=== PATIENT | female | born 1985 | race Hispanic/Latino ===

== ENCOUNTER 2017-01-14 19:15 | Emergency (ER) | payer SELFPAY ==
[2017-01-14] MEDS ORDERED: AUGMENTIN 875 MG PO ONE (22:01)
[2017-01-14] MEDS ORDERED: MOTRIN PO ONE (22:02)
--- NOTE | 2017-01-14 22:05 | Emergency Department Report ---
- General Chief Complaint: Upper Respiratory Infection Stated Complaint: BILATERAL EAR PAIN, CHEST PAIN Source: patient Mode of arrival: Ambulatory Limitations: No Limitations - History of Present Illness Initial Comments: 31-year-old female past medical history HIV currently on stribild, last CD4 over 500 less than 2 months ago p/w c/o 2 days of nasal congestion and bilateral earache. Patient denies any significant fever or chills, states that she is primarily experiencing earache very mild sore throat nasal and upper airway congestion. States she has a mild cough, slightly productive with scant whitish sputum. Patient is awake alert and oriented 3 does not appear to be in acute distress no audible wheezing or stridor on exam. Patient denies any nausea or vomiting denies any chest pain shortness of breath or palpitations. States that after coughing fits she feels slightly short of breath but it goes away after a few seconds. Patient denies any recent travel. States that her son was diagnosed with an ear infection this week. MD Complaint: cough, other (earache) Onset/Timin -: days(s) Severity: mild Severity scale (0 -10): 3 Quality: dull Consistency: constant Improves With: nothing Worsens With: nothing Context: sick contacts Associated Symptoms: nasal congestion, hoarseness - Related Data Previous Rx's Medication Instructions Recorded Last Taken Type Sertraline [Zoloft] 100 mg PO DAILY #30 tablet 02/06/15 Unknown Rx Stribild Tablet 1 tab PO DAILY #30 02/06/15 Unknown Rx Acetaminophen/Codeine 1 tab PO Q6H PRN #15 tab 01/20/16 Unknown Rx [Acetaminophen-Codeine #3 TAB] Sulfamethoxazole/Trimethoprim 1 each PO BID #6 tablet 01/29/16 Unknown Rx [Bactrim DS TAB] Amoxicillin/K Clav Tab [Augmentin 1 tab PO Q12HR #14 tab 01/14/17 Unknown Rx 875 mg] Ibuprofen [Motrin] 600 mg PO Q8H PRN #25 tablet 01/14/17 Unknown Rx Allergies Allergy/AdvReac Type Severity Reaction Status Date / Time No Known Allergies Allergy Verified 01/20/16 15:03 ED Review of Systems ROS: Stated complaint: BILATERAL EAR PAIN, CHEST PAIN Other details as noted in HPI Constitutional: denies: chills, fever Eyes: denies: eye pain, eye discharge, vision change ENT: ear pain. denies: throat pain Respiratory: denies: cough, shortness of breath, wheezing Cardiovascular: denies: chest pain, palpitations Endocrine: no symptoms reported Gastrointestinal: denies: abdominal pain, nausea, diarrhea Genitourinary: denies: urgency, dysuria, discharge Musculoskeletal: denies: back pain, joint swelling, arthralgia Skin: denies: rash, lesions Neurological: denies: headache, weakness, paresthesias Psychiatric: denies: anxiety, depression Hematological/Lymphatic: denies: easy bleeding, easy bruising ED Past Medical Hx - Past Medical History Previous Medical History?: Yes Hx Psychiatric Treatment: Yes (post depression) Hx HIV: Yes Additional medical history: GLAUCOMA - Surgical History Past Surgical History?: Yes Additional Surgical History: X 3 - Social History Smoking Status: Never Smoker Substance Use Type: None - Medications Home Medications: Home Medications Medication Instructions Recorded Confirmed Last Taken Type Sertraline [Zoloft] 100 mg PO DAILY #30 tablet 02/06/15 Unknown Rx Stribild Tablet 1 tab PO DAILY #30 02/06/15 Unknown Rx Acetaminophen/Codeine 1 tab PO Q6H PRN #15 tab 01/20/16 Unknown Rx [Acetaminophen-Codeine #3 TAB] Sulfamethoxazole/Trimethoprim 1 each PO BID #6 tablet 01/29/16 Unknown Rx [Bactrim DS TAB] Amoxicillin/K Clav Tab [Augmentin 1 tab PO Q12HR #14 tab 01/14/17 Unknown Rx 875 mg] Ibuprofen [Motrin] 600 mg PO Q8H PRN #25 tablet 01/14/17 Unknown Rx ED Physical Exam - General Limitations: No Limitations General appearance: alert, in no apparent distress - Head Head exam: Present: atraumatic, normocephalic - Eye Eye exam: Present: normal appearance, PERRL, EOMI - ENT ENT exam: Present: mucous membranes moist - Expanded ENT Exam Expanded TM/Canal exam: Erythema: Left TM, Bulging: Left TM (mild bulging of TM with slight erythema left side. There is no mastoid tenderness bilaterally on exam patient mastoid regions.) Mouth exam: Present: normal external inspection Teeth exam: Present: normal inspection Throat exam: Positive: normal inspection - Neck Neck exam: Present: normal inspection, full ROM - Respiratory Respiratory exam: Present: normal lung sounds bilaterally. Absent: respiratory distress - Cardiovascular Cardiovascular Exam: Present: regular rate, normal rhythm. Absent: systolic murmur, diastolic murmur, rubs, gallop - GI/Abdominal GI/Abdominal exam: Present: soft, normal bowel sounds - Extremities Exam Extremities exam: Present: normal inspection - Back Exam Back exam: Present: normal inspection - Neurological Exam Neurological exam: Present: alert, oriented X3, CN II-XII intact, normal gait - Psychiatric Psychiatric exam: Present: normal affect, normal mood - Skin Skin exam: Present: warm, dry, intact, normal color. Absent: rash ED Course Vital Signs 01/14/17 20:00 Temperature 98.3 F Pulse Rate 81 Respiratory 20 Rate Blood Pressure 113/68 [Right] O2 Sat by Pulse 100 Oximetry ED Medical Decision Making - Medical Decision Making A/P: Acute otitis media 1-patient has HIV but as per her last CD4 is well controlled with undetectable viral load and CD4 count over 500 as per patient states it was checked less than 2 months ago 2-Augmentin 875 twice a day for 7 days 3-Motrin when necessary for earache 4-advised patient to return to the ED if symptoms worsen she has any discharge from her ears experiences any significant decrease in hearing has persistent fever or chills without any associated neck rigidity photo or phonophobia 5-patient has no complaints of chest pain or palpitations, EKG done in triage was normal has no other cardiac risk factors 6- case discussed with Dr. Latham before discharge Critical care attestation.: If time is entered above; I have spent that time in minutes in the direct care of this critically ill patient, excluding procedure time. ED Disposition Clinical Impression: Acute otitis media Qualifiers: Otitis media type: suppurative Laterality: bilateral Recurrence: not specified as recurrent Spontaneous tympanic membrane rupture: without spontaneous rupture Qualified Code(s): H66.003 - Acute suppurative otitis media without spontaneous rupture of ear drum, bilateral Disposition: DISCHARGED TO HOME OR SELFCARE Is pt being admited?: No Does the pt Need Aspirin: No Condition: Stable Instructions: Otitis Media (ED) Prescriptions: Amoxicillin/K Clav Tab [Augmentin 875 mg] 1 tab PO Q12HR #14 tab Ibuprofen [Motrin] 600 mg PO Q8H PRN #25 tablet PRN Reason: Pain Referrals: [facility] [Outside] - 3-5 Days DEBI LAWS MD [Staff Physician] - 3-5 Days Forms: Work/School Release Form(ED) Time of Disposition: 22:09
[2017-01-14 22:25] VITALS: BP 115/72
== END 2017-01-14 22:26 | disposition home or self-care (01) ==
LOC: ED 19:15
DX: H66.003 Acute suppurative otitis media without spontaneous rupture of ear drum, bilateral (principal)
CPT/HCPCS: 93005; 93010; 99282

== ENCOUNTER 2017-02-22 00:01 | Emergency (ER) | payer OTHER ==
[2017-02-22 00:23] VITALS: BP 118/87
[2017-02-22] MEDS ORDERED: THERMAZENE 50 GRAM TP ONE (00:55)
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
[2017-02-22] MEDS ORDERED: NORCO 5/325 PO ONE (01:19)
== END 2017-02-22 02:26 | disposition home or self-care (01) ==
LOC: ED 00:01
DX: T21.22XA Burn of second degree of abdominal wall, initial encounter (principal); X12.XXXA Contact with other hot fluids, initial encounter; Y93.89 Activity, other specified; Y99.9 Unspecified external cause status; Y92.89 Other specified places as the place of occurrence of the external cause

== ENCOUNTER 2018-02-27 01:02 | Emergency (ER) | payer MEDICARE ==
[2018-02-27 01:35] VITALS: BP 134/77
--- NOTE | 2018-02-27 03:24 | Emergency Department Report ---
ED ENT HPI - General Chief complaint: Earache Stated complaint: EAR PAIN Time Seen by Provider: 02/27/18 03:03 Source: patient Mode of arrival: Ambulatory Limitations: No Limitations - History of Present Illness Initial comments: This is a 32-year-old female nontoxic, well nourished in appearance, no acute signs of distress presents to the ED with c/o of right earache times one day. Patient describes pain as aching. Patient denies any decreased hearing or ear canal discharge. Patient denies any mastoid or tragus tenderness. Patient denies any fever, chills, nausea, vomiting, chest pain, shortness of breath, headache or stiff neck. Patient denies any drug allergies. Past medical history includes HIV. MD complaint: ear pain -: days(s) (1) Location: R ear Severity: mild Severity scale (0 -10): 8 Quality: aching Consistency: constant Improves with: none Worsens with: none Associated Symptoms: denies: fever, cough, gum swelling, toothache, pain with swallowing, sore throat, tinnitus, hearing loss, discharge from ear, rhinorrhea - Related Data Previous Rx's Medication Instructions Recorded Last Taken Type Stribild Tablet 1 tab PO DAILY #30 02/06/15 1 Day Ago Rx ~02/21/17 Acetaminophen/Codeine [Tylenol 1 tab PO Q6H PRN #20 tab 02/22/17 Unknown Rx /Codeine # 3 tab] Silver Sulfadiazine [Thermazene] 50 gm TP BID #1 cream..g. 02/22/17 Unknown Rx Amoxicillin [Amoxicillin TAB] 875 mg PO BID #20 tablet 02/27/18 Unknown Rx Ciprofloxacin 0.2%(Nf) 4 drops AD TID #1 droperette 02/27/18 Unknown Rx [Ciprofloxacin Otic 0.2%(Nf)] Allergies Allergy/AdvReac Type Severity Reaction Status Date / Time No Known Allergies Allergy Verified 01/20/16 15:03 ED Dental HPI - General Chief complaint: Earache Stated complaint: EAR PAIN Time Seen by Provider: 02/27/18 03:03 Source: patient Mode of arrival: Ambulatory Limitations: No Limitations - Related Data Previous Rx's Medication Instructions Recorded Last Taken Type Stribild Tablet 1 tab PO DAILY #30 02/06/15 1 Day Ago Rx ~02/21/17 Acetaminophen/Codeine [Tylenol 1 tab PO Q6H PRN #20 tab 02/22/17 Unknown Rx /Codeine # 3 tab] Silver Sulfadiazine [Thermazene] 50 gm TP BID #1 cream..g. 02/22/17 Unknown Rx Amoxicillin [Amoxicillin TAB] 875 mg PO BID #20 tablet 02/27/18 Unknown Rx Ciprofloxacin 0.2%(Nf) 4 drops AD TID #1 droperette 02/27/18 Unknown Rx [Ciprofloxacin Otic 0.2%(Nf)] Allergies Allergy/AdvReac Type Severity Reaction Status Date / Time No Known Allergies Allergy Verified 01/20/16 15:03 ED Review of Systems ROS: Stated complaint: EAR PAIN Other details as noted in HPI Constitutional: denies: chills, fever Eyes: denies: eye pain, eye discharge, vision change ENT: ear pain. denies: throat pain Respiratory: denies: cough, shortness of breath, wheezing Cardiovascular: denies: chest pain, palpitations Endocrine: no symptoms reported Gastrointestinal: denies: abdominal pain, nausea, diarrhea Genitourinary: denies: urgency, dysuria, discharge Musculoskeletal: denies: back pain, joint swelling, arthralgia Skin: denies: rash, lesions Neurological: denies: headache, weakness, paresthesias Psychiatric: denies: anxiety, depression Hematological/Lymphatic: denies: easy bleeding, easy bruising ED Past Medical Hx - Past Medical History Previous Medical History?: Yes Hx Psychiatric Treatment: Yes (post depression) Hx HIV: Yes Additional medical history: GLAUCOMA - Surgical History Past Surgical History?: Yes Additional Surgical History: X 3 - Social History Smoking Status: Never Smoker Substance Use Type: None - Medications Home Medications: Home Medications Medication Instructions Recorded Confirmed Last Taken Type Stribild Tablet 1 tab PO DAILY #30 02/06/15 02/22/17 1 Day Ago Rx ~02/21/17 Acetaminophen/Codeine [Tylenol 1 tab PO Q6H PRN #20 tab 02/22/17 Unknown Rx /Codeine # 3 tab] Silver Sulfadiazine [Thermazene] 50 gm TP BID #1 cream..g. 02/22/17 Unknown Rx Amoxicillin [Amoxicillin TAB] 875 mg PO BID #20 tablet 02/27/18 Unknown Rx Ciprofloxacin 0.2%(Nf) 4 drops AD TID #1 droperette 02/27/18 Unknown Rx [Ciprofloxacin Otic 0.2%(Nf)] ED Physical Exam - General Limitations: No Limitations General appearance: alert, in no apparent distress - Head Head exam: Present: atraumatic, normocephalic - Eye Eye exam: Present: normal appearance Pupils: Present: normal accommodation - ENT ENT exam: Present: normal orophraynx, mucous membranes moist, normal external ear exam - Expanded ENT Exam Expanded TM/Canal exam: Erythema: Right TM, Bulging: Right TM Mouth exam: Present: normal external inspection, tongue normal. Absent: drooling, trismus, muffled voice, tongue elevation, laceration Teeth exam: Present: normal inspection Throat exam: Positive: normal inspection, other (Uvula midline.). Negative: tonsillar erythema, tonsillomegaly, tonsillar exudate, R peritonsillar mass, L peritonsillar mass - Neck Neck exam: Present: normal inspection, full ROM. Absent: tenderness, meningismus, lymphadenopathy - Respiratory Respiratory exam: Present: normal lung sounds bilaterally. Absent: respiratory distress, wheezes, rales, rhonchi, stridor - Cardiovascular Cardiovascular Exam: Present: regular rate, normal rhythm, normal heart sounds. Absent: bradycardia, tachycardia, irregular rhythm, systolic murmur, diastolic murmur, rubs, gallop - GI/Abdominal GI/Abdominal exam: Present: soft, normal bowel sounds - Rectal Rectal exam: Present: deferred - Extremities Exam Extremities exam: Present: normal inspection, full ROM, normal capillary refill - Back Exam Back exam: Present: normal inspection, full ROM - Neurological Exam Neurological exam: Present: alert, oriented X3, normal gait - Psychiatric Psychiatric exam: Present: normal affect, normal mood - Skin Skin exam: Present: warm, dry, intact, normal color. Absent: rash ED Course Vital Signs 02/27/18 01:04 Temperature 98.4 F Pulse Rate 71 Respiratory 16 Rate Blood Pressure 134/77 O2 Sat by Pulse 95 Oximetry - Reevaluation(s) Reevaluation #1: 02/27/18 03:23 Follow-up with a primary care doctor in 3-5 days or if symptoms worsen and continue return to emergency room as soon as possible. Critical care attestation.: If time is entered above; I have spent that time in minutes in the direct care of this critically ill patient, excluding procedure time. ED Disposition Clinical Impression: Otitis media Qualifiers: Otitis media type: unspecified Laterality: right Qualified Code(s): H66.91 - Otitis media, unspecified, right ear Disposition: TO HOME OR SELFCARE Is pt being admited?: No Does the pt Need Aspirin: No Condition: Stable Instructions: Otitis Media (ED) Additional Instructions: Follow-up with a primary care doctor in 3-5 days or if symptoms worsen and continue return to emergency room as soon as possible. Prescriptions: Amoxicillin [Amoxicillin TAB] 875 mg PO BID #20 tablet Ciprofloxacin 0.2%(Nf) [Ciprofloxacin Otic 0.2%(Nf)] 4 drops AD TID #1 droperette Referrals: DYLLAN MURPHY MD [Primary Care Provider] - 3-5 Days PRIMARY CARE, [Referring] - 3-5 Days [facility] [Outside] - 3-5 Days [facility] [Outside] - 3-5 Days Forms: Work/School Release Form(ED)
== END 2018-02-27 03:32 | disposition home or self-care (01) ==
LOC: ED 01:02
DX: H66.91 Otitis media, unspecified, right ear (principal)
CPT/HCPCS: 99282

== ENCOUNTER 2018-04-08 20:20 | Emergency (ER) | payer MEDICARE ==
[2018-04-08 21:20] VITALS: BP 121/67
[2018-04-08 21:36] LABS: Basophils % (Auto) 0.6 % (0.0-1.8); Eosinophils # (Auto) 0.1 K/mm3 (0.0-0.4); Eosinophils % (Auto) 1.9 % (0.0-4.3); Hematocrit 38.6 % (30.3-42.9); Hemoglobin 12.7 gm/dl (10.1-14.3); Lymphocytes # (Auto) 1.8 K/mm3 (1.2-5.4); Lymphocytes % (Auto) 38.8 % (13.4-35.0); Mean Corpuscular HGB Conc 33 % (30-34); Mean Corpuscular Hemoglobin 28 pg (28-32); Mean Corpuscular Volume 85 fl (79-97); Monocytes # (Auto) 0.5 K/mm3 (0.0-0.8); Monocytes % (Auto) 10.5 % (0.0-7.3); Platelet Count 166 K/mm3 (140-440); Red Blood Count 4.56 M/mm3 (3.65-5.03)
[2018-04-08 21:44] LABS: BUN/Creatinine Ratio 22; Blood Urea Nitrogen 13 mg/dL (7-17); Calcium 8.6 mg/dL (8.4-10.2); Hemolysis Index 1
[2018-04-08 22:14] LABS: Bilirubin,Urine NEG (Negative); Blood,Urine SM (Negative); Color,Urine Yellow (Yellow); Mucus,Urine FEW /HPF; Protein,Urine <15 mg/dL mg/dL (Negative)
--- NOTE | 2018-04-08 23:17 | Emergency Department Report ---
ED Upper Extremity Inj HPI - General Chief Complaint: Extremity Problem,Nontraumatic Stated Complaint: BACK AND FEET PAIN Time Seen by Provider: 04/08/18 22:24 Source: patient Mode of arrival: Ambulatory Limitations: No Limitations - History of Present Illness Initial Comments: 32-year-old female comes in complaining of lower back pain, numbness to both feet since yesterday. Patient says it feels like there are needles sticking in her feet. She reports that she felt numb and it made it worse. She reports that on her feet all day. She denies any swelling denies any injury denies any trauma. Patient is followed by [facility]. Patient has not taken any pain medicine for this issue or has been seen by her primary care provider for this. -: days(s) (2) Treatments Prior to Arrival: other (none) - Related Data Previous Rx's Medication Instructions Recorded Last Taken Type Stribild Tablet 1 tab PO DAILY #30 02/06/15 1 Day Ago Rx ~02/21/17 Acetaminophen/Codeine [Tylenol 1 tab PO Q6H PRN #20 tab 02/22/17 Unknown Rx /Codeine # 3 tab] Silver Sulfadiazine [Thermazene] 50 gm TP BID #1 cream..g. 02/22/17 Unknown Rx Amoxicillin [Amoxicillin TAB] 875 mg PO BID #20 tablet 02/27/18 Unknown Rx Ciprofloxacin 0.2%(Nf) 4 drops AD TID #1 droperette 02/27/18 Unknown Rx [Ciprofloxacin Otic 0.2%(Nf)] Ibuprofen [Motrin 600 MG tab] 600 mg PO Q8H PRN #30 tablet 04/09/18 Unknown Rx Allergies Allergy/AdvReac Type Severity Reaction Status Date / Time No Known Allergies Allergy Verified 01/20/16 15:03 ED Review of Systems ROS: Stated complaint: BACK AND FEET PAIN Other details as noted in HPI Constitutional: denies: chills, fever Eyes: denies: eye pain, eye discharge, vision change ENT: denies: ear pain, throat pain Respiratory: no symptoms reported Cardiovascular: denies: chest pain, palpitations Musculoskeletal: back pain, arthralgia, other (bilateral feet pain) Neurological: numbness (bilateral feet numbness) Psychiatric: denies: anxiety, depression Hematological/Lymphatic: denies: easy bleeding, easy bruising ED Past Medical Hx - Past Medical History Previous Medical History?: Yes Hx Psychiatric Treatment: Yes (post depression) Hx HIV: Yes Additional medical history: GLAUCOMA - Surgical History Past Surgical History?: Yes Additional Surgical History: X 3 - Social History Smoking Status: Never Smoker Substance Use Type: None - Medications Home Medications: Home Medications Medication Instructions Recorded Confirmed Last Taken Type Stribild Tablet 1 tab PO DAILY #30 02/06/15 02/22/17 1 Day Ago Rx ~02/21/17 Acetaminophen/Codeine [Tylenol 1 tab PO Q6H PRN #20 tab 02/22/17 Unknown Rx /Codeine # 3 tab] Silver Sulfadiazine [Thermazene] 50 gm TP BID #1 cream..g. 02/22/17 Unknown Rx Amoxicillin [Amoxicillin TAB] 875 mg PO BID #20 tablet 02/27/18 Unknown Rx Ciprofloxacin 0.2%(Nf) 4 drops AD TID #1 droperette 02/27/18 Unknown Rx [Ciprofloxacin Otic 0.2%(Nf)] Ibuprofen [Motrin 600 MG tab] 600 mg PO Q8H PRN #30 tablet 04/09/18 Unknown Rx ED Physical Exam - General Limitations: No Limitations General appearance: alert, in no apparent distress - Head Head exam: Present: atraumatic, normocephalic - Eye Eye exam: Present: normal appearance - ENT ENT exam: Present: mucous membranes moist - Neck Neck exam: Present: full ROM - Extremities Exam Extremities exam: Present: other (bilateral feet has multiple calluses) - Back Exam Back exam: Present: full ROM. Absent: tenderness - Neurological Exam Neurological exam: Present: alert, oriented X3 - Psychiatric Psychiatric exam: Present: normal affect, normal mood ED Course Vital Signs 04/08/18 21:12 Temperature 98.4 F Pulse Rate 57 L Respiratory 14 Rate Blood Pressure 121/67 O2 Sat by Pulse 99 Oximetry ED Medical Decision Making - Lab Data Result diagrams: 04/08/18 21:24 04/08/18 21:24 - Radiology Data Radiology results: report reviewed, image reviewed FINAL REPORT EXAM: XR SPINE LUMBOSACRAL 2-3V HISTORY: lower back pain with numbness to both feet COMPARISON: None available. FINDINGS: Three views of the lumbar spine obtained. Lumbar vertebral body heights preserved. Grade 1-2 anterolisthesis of L5 on S1 by 10 millimeters due to bilateral pars defects and facet changes. Moderate severe loss of disc height at that level. Remaining disc heights are preserved. IMPRESSION: Grade 1-2 anterolisthesis of L5 on S1 due to bilateral pars defects and facet changes. Moderate to severe loss of disc height at that level. Transcribed By: LMA Dictated By: DAVID PATEL MD Electronically Authenticated By: DAVID PATEL MD Signed Date/Time: 04/09/18114 DD/ 4 - Medical Decision Making Patient's been evaluated by this provider fast track. Lumbar sacral x-ray ordered and completed. X-ray came back for grade 1-2 anteriorlisthesis of L5 on S1 due to bilateral pars defect and facet changes. Moderate to severe loss of disc height at that level. HCG negative urinalysis within normal limits, CBC within normal limits, CMP within normal limits. We'll discharge patient home on ibuprofen 800 mg by mouth every 8 hours when necessary for pain. I will place a referral for patient to be followed up by orthopedist. Patient verbalized understanding Critical care attestation.: If time is entered above; I have spent that time in minutes in the direct care of this critically ill patient, excluding procedure time. ED Disposition Clinical Impression: Anterolisthesis Disposition: DC-01 TO HOME OR SELFCARE Is pt being admited?: No Does the pt Need Aspirin: No Condition: Stable Instructions: Lumbar Radiculopathy (ED) Additional Instructions: Please take pain medication as needed. Please follow-up with the back specialist I have listed several below. Prescriptions: Ibuprofen [Motrin 600 MG tab] 600 mg PO Q8H PRN #30 tablet PRN Reason: Pain Referrals: PRIMARY CARE, [Primary Care Provider] - 3-5 Days DAMIEN APPIAH MD [Staff Physician] - 3-5 Days ABBY BUTLER MD [Staff Physician] - 3-5 Days Forms: Work/School Release Form(ED)
[2018-04-09] MEDS ORDERED: MOTRIN PO ONE (00:42)
--- NOTE | 2018-04-09 01:19 | XRay Report ---
FINAL REPORT EXAM: XR SPINE LUMBOSACRAL 2-3V HISTORY: lower back pain with numbness to both feet COMPARISON: None available. FINDINGS: Three views of the lumbar spine obtained. Lumbar vertebral body heights preserved. Grade 1-2 anterolisthesis of L5 on S1 by 10 millimeters due to bilateral pars defects and facet changes. Moderate severe loss of disc height at that level. Remaining disc heights are preserved. IMPRESSION: Grade 1-2 anterolisthesis of L5 on S1 due to bilateral pars defects and facet changes. Moderate to severe loss of disc height at that level.
== END 2018-04-09 02:05 | disposition home or self-care (01) ==
LOC: ED 20:20
DX: M43.16 Spondylolisthesis, lumbar region (principal)
CPT/HCPCS: 36415; 72100; 80048; 81001; 84703; 85025; 99284